=== PATIENT | female | born 1995 | race Hispanic/Latino ===

== ENCOUNTER 2020-05-20 06:42 | Emergency (ER) | payer MEDICAID ==
[~2020-05-20 06:42] MED LIST: LEVO25TA9 PO; LEVO500S PO
[2020-05-20 07:01] LABS: APPEARANCE,URINE CLOUDY (CLEAR); BILIRUBIN,URINE NEGATIVE (NEGATIVE); COLOR,URINE YELLOW (YELLOW); GLUCOSE, URINE (UA) NEGATIVE (NEGATIVE); KETONES,URINE NEGATIVE (NEGATIVE); LEUKOCYTE ESTERASE ,URINE SMALL (NEGATIVE); NITRATE,URINE POSITIVE (NEGATIVE); OCCULT BLOOD,URINE LARGE (NEGATIVE); PROTEIN,URINE >=300 mg/dL (NEGATIVE); UROBILINOGEN,URINE 0.2 mg/dL (0.2-1.0)
[2020-05-20 07:16] LABS: BACTERIA,URINE Many /HPF (None Seen); WBC,URINE TNTC /HPF (0-1)
[2020-05-20] MEDS ORDERED: LEVOFLOXACIN 500 MG TABLET ONE (07:51)
[2020-05-20] MEDS ORDERED: IBUPROFEN 600 MG TABLET ONE (07:51)
[2020-05-20] MEDS ORDERED: ACETAMINOPHEN 500 MG TABLET ONE (07:51)
[2020-05-20] MEDS ORDERED: PHENAZOPYRIDINE HCL 200 MG TABLET ONE (07:52)
== END 2020-05-20 09:16 | disposition home or self-care (01) ==
LOC: EDH 06:42
DX: N39.0 Urinary tract infection, site not specified (principal); R07.9 Chest pain, unspecified; Z88.6 Allergy status to analgesic agent
CPT/HCPCS: 81001; 81025; 87077; 87088; 87186

== ENCOUNTER 2020-11-09 15:00 | Emergency (ER) | payer MEDICAID ==
[~2020-11-09] VITALS: Ht 147.3 cm; Wt 72.6 kg
[2020-11-09 15:02] VITALS: BP 153/98
[2020-11-09 16:12] LABS: APPEARANCE,URINE Cloudy (CLEAR); BILIRUBIN,URINE Negative (NEGATIVE); COLOR,URINE Yellow (YELLOW); GLUCOSE, URINE (UA) Negative (NEGATIVE); KETONES,URINE Negative (NEGATIVE); LEUKOCYTE ESTERASE ,URINE Moderate (NEGATIVE); NITRATE,URINE Negative (NEGATIVE); OCCULT BLOOD,URINE Moderate (NEGATIVE); PROTEIN,URINE 300 mg/dL (NEGATIVE); UROBILINOGEN,URINE 0.2 mg/dL (0.2-1.0)
[2020-11-09 16:28] LABS: BACTERIA,URINE Many /HPF (None Seen); MUCUS,URINE Few LPF (None Seen); SQUAMOUS EPITHELIAL CELL,UR Moderate /HPF (0-2); WBC,URINE 26-50 /HPF (0-1)
[2020-11-09] MEDS ORDERED: ONDANSETRON ODT 4MG TAB SL ONE (16:30)
[2020-11-09] MEDS ORDERED: SULF1TAB42 PO (16:39)
[2020-11-09] MEDS ORDERED: IBUP-2070 PO (16:39)
[2020-11-09] MEDS ORDERED: ONDA4TAB10 PO (16:39)
[2020-11-09] MEDS ORDERED: KETOROLAC 30MG VIAL (30MG/ML) ONE (16:47)
== END 2020-11-09 18:53 | disposition home or self-care (01) ==
LOC: EDH 15:00
DX: N39.0 Urinary tract infection, site not specified (principal); Z79.1 Long term (current) use of non-steroidal anti-inflammatories (NSAID); Z79.899 Other long term (current) drug therapy; Z88.1 Allergy status to other antibiotic agents
CPT/HCPCS: 81001; 81025; 87077 ×2; 87088; 87186 ×2; 96372; 99283; J1885